=== PATIENT | female | born 1975 | race Caucasian/White ===

== ENCOUNTER 2021-07-14 09:25 | Observation (INO) ==
[2021-07-14 10:03] LABS: Basophils % 0.1 %; Eosinophils # 0.1 K/mcL (0.0-0.6); Eosinophils % 1.2 %; Hematocrit 34.1 % (35.3-44.9); Immature Granulocytes % 0.4 % (0-4); Lymphocytes # 0.5 K/mcL (0.6-4.6); Lymphocytes % 6.6 %; Mean Corpuscular HGB Conc 32.3 g/dL (31.6-35.5); Mean Corpuscular Hemoglobin 28.4 pg (28.0-33.3); Mean Corpuscular Volume 88.1 fL (83.0-100.0); Mean Platelet Volume 8.5 fL (9.4-12.4); Monocytes # 0.5 K/mcL (0.0-1.3); Monocytes % 6.6 %; Neutrophils # 5.8 K/mcL (1.6-8.9); Platelet Count 181 K/mcL (140-400); Red Blood Count 3.87 M/mcL (3.82-4.97); Red Cell Distribution Width 15.6 % (11.5-14.5); Segmented Neutrophils % 85.1 %; White Blood Count 6.8 K/mcL (4.3-11.1)
[2021-07-14 10:19] LABS: BUN/Creatinine Ratio 19 (6-26); Blood Urea Nitrogen 14 mg/dL (6-20); Calcium 9.5 mg/dL (8.6-10.3); Carbon Dioxide 25 mEq/L (23-29); Chloride 105 mEq/L (98-107); Glucose 109 mg/dL (70-105); Osmolality,Calculated 285 (280-300); Potassium 4.2 mEq/L (3.5-5.1); Sodium 137 mEq/L (136-145); eGFR For African Americans > 60 (> 60); eGFR For Non-African Americans > 60 (> 60)
[2021-07-14 10:20] LABS: Troponin I < 0.03 ng/mL (< 0.04)
[2021-07-14] MEDS ORDERED: Isovue-370 500 ML BOTTLE IVP ONE (10:26)
[2021-07-14] MEDS ORDERED: Metoclopramide 10 MG/2 ML VIAL IVP ONE (10:26)
[2021-07-14 11:59] LABS: Adenovirus Not Detected (Not Detect); Bordetella Pertussis Not Detected (Not Detect); Chlamydophila pneumoniae Not Detected (Not Detect); Coronavirus 229E Not Detected (Not Detect); Coronavirus HKU1 Not Detected (Not Detect); Coronavirus NL63 Not Detected (Not Detect); Coronavirus OC43 Not Detected (Not Detect); Human Metapneumovirus Not Detected (Not Detect); Human Rhinovirus/Enterovirus Not Detected (Not Detect); Influenza A Subtype 2009 H1 Not Detected (Not Detect); Influenza B Not Detected (Not Detect); Mycoplasma pneumoniae Not Detected (Not Detect); Parainfluenza Virus 1 Not Detected (Not Detect); Parainfluenza Virus 2 Not Detected (Not Detect); Parainfluenza Virus 3 Not Detected (Not Detect); Parainfluenza Virus 4 Not Detected (Not Detect); Respiratory Syncytial Virus Not Detected (Not Detect); SARS-CoV-2 Not Detected (Not Detect)
[2021-07-14 13:12] LABS: Bilirubin,Urine Negative (Negative); Blood,Urine Negative (Negative); Clarity,Urine Clear (Clear); Color,Urine Colorless (Yellow); Glucose,Urine (UA) Normal (Normal); Ketones,Urine Negative (Negative); Leukocyte Esterase,Urine Negative (Negative); Nitrite,Urine Negative (Negative); PH,Urine 6.5 pH Units (5.0-8.0); Protein,Urine Negative (Neg-Trace); Specific Gravity,Urine > 1.030 (1.010-1.025); Urobilinogen,Urine Normal (Normal)
[2021-07-14] MEDS ORDERED: Gadolinium Contrast Agent (WT Based) IV PRN (13:48)
[2021-07-14] MEDS ORDERED: *HR* LORazepam 2 MG/ML VIAL IVP ONE (14:56)
[2021-07-14] MEDS ORDERED: *HR* OxyCODONE Oral Soln 5 MG/5 ML UD.LIQ PO PRN ×2 (14:58)
[2021-07-14] MEDS ORDERED: Acetaminophen 325 MG TABLET PO PRN (14:59)
[2021-07-14] MEDS ORDERED: Ondansetron 4 MG/2 ML VIAL IVP PRN (15:00)
[2021-07-14] MEDS ORDERED: 0.9 % Sodium Chloride 1,000 ML IVC ONE (15:04)
[2021-07-14] MEDS ORDERED: Prochlorperazine 10 MG/2 ML VIAL IVP STA (15:07)
[2021-07-14] MEDS ORDERED: Ketorolac 30 MG/ML VIAL IVP STA (15:07)
[2021-07-14] MEDS ORDERED: *HR* LORazepam 2 MG/ML VIAL IVP PRN (15:08)
[2021-07-14] MEDS ORDERED: GADOBUTROL 30 MMOL/30 ML VIAL IVP ONE (15:17)
[2021-07-14] MEDS ORDERED: Naloxone 0.4 MG/ML INJ IVP PRN (17:55)
[2021-07-14] MEDS ORDERED: Perflutren Lipid Microsphere 1.3 ML in 0.9 % Sodium Chloride 8.7 ML IVP PRN (17:56)
[2021-07-14] MEDS: *HR* Heparin 5,000 UNIT/ML VIAL SQ SCH (18:59)
[2021-07-14] MEDS: 0.9 % Sodium Chloride 1,000 ML IVC SCH (19:00)
[2021-07-14] MEDS: BuPROPion SR (12 HR) 150 MG TABLET PO SCH (19:40)
[2021-07-14] MEDS: levoFLOXacin 750 MG TABLET PO SCH (19:40)
[2021-07-15] MEDS: 0.9 % Sodium Chloride 1,000 ML IVC SCH (03:33)
[2021-07-15 04:02] LABS: Basophils % 0.4 %; Eosinophils # 0.1 K/mcL (0.0-0.6); Eosinophils % 1.5 %; Hematocrit 31.5 % (35.3-44.9); Hemoglobin 9.8 g/dL (11.5-15.4); Immature Granulocytes % 0.4 % (0-4); Lymphocytes # 0.4 K/mcL (0.6-4.6); Lymphocytes % 7.6 %; Mean Corpuscular HGB Conc 31.1 g/dL (31.6-35.5); Mean Corpuscular Hemoglobin 27.8 pg (28.0-33.3); Mean Corpuscular Volume 89.5 fL (83.0-100.0); Mean Platelet Volume 8.7 fL (9.4-12.4); Monocytes # 0.4 K/mcL (0.0-1.3); Monocytes % 7.6 %; Neutrophils # 4.4 K/mcL (1.6-8.9); Platelet Count 163 K/mcL (140-400); Red Blood Count 3.52 M/mcL (3.82-4.97); Red Cell Distribution Width 15.4 % (11.5-14.5); Segmented Neutrophils % 82.5 %; White Blood Count 5.3 K/mcL (4.3-11.1)
[2021-07-15 04:25] LABS: % Iron Saturation 21 % (15-50); Alanine Aminotransferase 13 Units/L (7-52); Albumin 3.5 g/dL (3.5-5.7); Albumin/Globulin Ratio 1.3 (1.1-2.2); Alkaline Phosphatase 85 Units/L (34-104); Aspartate Amino Transferase 11 Units/L (13-39); BUN/Creatinine Ratio 17 (6-26); Bilirubin,Direct 0.1 mg/dL (0.0-0.2); Bilirubin,Indirect 0.5 mg/dL (0.0-1.0); Bilirubin,Total 0.6 mg/dL (0.3-1.0); Blood Urea Nitrogen 13 mg/dL (6-20); Calcium 8.3 mg/dL (8.6-10.3); Carbon Dioxide 24 mEq/L (23-29); Chloride 107 mEq/L (98-107); Globulin 2.8 g/dL (2.4-3.5); Glucose 91 mg/dL (70-105); Iron 56 mcg/dL (50-170); Osmolality,Calculated 286 (280-300); Potassium 3.7 mEq/L (3.5-5.1); Sodium 138 mEq/L (136-145); Total Protein 6.3 g/dL (6.4-8.9); Transferrin 193 mg/dL (203-362); eGFR For African Americans > 60 (> 60); eGFR For Non-African Americans > 60 (> 60)
[2021-07-15 04:35] LABS: Thyroid Stimulating Hormone 0.541 mcIU/mL (0.340-5.600)
[2021-07-15] MEDS: *HR* Heparin 5,000 UNIT/ML VIAL SQ SCH (05:54)
[2021-07-15] MEDS: BuPROPion SR (12 HR) 150 MG TABLET PO SCH (08:03)
[2021-07-15] MEDS: levoFLOXacin 750 MG TABLET PO SCH (08:03)
[2021-07-15 10:42] VITALS: BP 101/67
[2021-07-15 11:28] VITALS: PULSE 85; TEMP 98.2; O2SAT 94
== END 2021-07-15 12:50 | disposition home or self-care (01) ==
LOC: 3ANU 09:25 → EMEROOARM 09:25 → SUATTDRO 14:15 → 3ANU 15:16
PROVIDERS: ADMIT Student in an Organized Health Care Education/Training Program; ATTEND Internal Medicine

== ENCOUNTER 2021-09-08 14:32 | Inpatient (IN) ==
[2021-09-08] MEDS ORDERED: 0.9 % Sodium Chloride 1,000 ML IVC ONE (17:16)
[2021-09-08 17:20] LABS: Basophils % 0.3 %; Eosinophils % 0.5 %; Hematocrit 37.2 % (35.3-44.9); Hemoglobin 11.3 g/dL (11.5-15.4); Immature Granulocytes % 1.6 % (0-4); Lymphocytes # 0.3 K/mcL (0.6-4.6); Mean Corpuscular HGB Conc 30.4 g/dL (31.6-35.5); Mean Corpuscular Hemoglobin 26.5 pg (28.0-33.3); Mean Corpuscular Volume 87.3 fL (83.0-100.0); Mean Platelet Volume 9.1 fL (9.4-12.4); Monocytes # 0.6 K/mcL (0.0-1.3); Monocytes % 11.1 %; Neutrophils # 4.7 K/mcL (1.6-8.9); Platelet Count 187 K/mcL (140-400); Red Blood Count 4.26 M/mcL (3.82-4.97); Red Cell Distribution Width 17.8 % (11.5-14.5); Segmented Neutrophils % 81.5 %; White Blood Count 5.8 K/mcL (4.3-11.1)
[2021-09-08] MEDS ORDERED: Benzonatate 100 MG CAPSULE PO STA (17:36)
[2021-09-08] MEDS ORDERED: Morphine Sulfate 2 MG/ML SYRINGE IVP STA (17:36)
[2021-09-08 17:38] LABS: Alanine Aminotransferase 23 Units/L (7-52); Albumin 4.1 g/dL (3.5-5.7); Albumin/Globulin Ratio 1.1 (1.1-2.2); Alkaline Phosphatase 122 Units/L (34-104); Aspartate Amino Transferase 20 Units/L (13-39); BUN/Creatinine Ratio 15 (6-26); Bilirubin,Direct 0.1 mg/dL (0.0-0.2); Bilirubin,Indirect 0.5 mg/dL (0.0-1.0); Bilirubin,Total 0.6 mg/dL (0.3-1.0); Blood Urea Nitrogen 15 mg/dL (6-20); Calcium 9.8 mg/dL (8.6-10.3); Carbon Dioxide 29 mEq/L (23-29); Chloride 99 mEq/L (98-107); Globulin 3.9 g/dL (2.4-3.5); Glucose 103 mg/dL (70-105); Lipase 7 Units/L (11-82); Osmolality,Calculated 287 (280-300); Potassium 3.8 mEq/L (3.5-5.1); Sodium 138 mEq/L (136-145); eGFR For African Americans > 60 (> 60); eGFR For Non-African Americans > 60 (> 60)
[2021-09-08 17:40] LABS: INR 1.2; Prothrombin Time 13.1 Seconds (9.4-12.1)
[2021-09-08 17:43] LABS: Activated Partial Thrombo Time 27.9 Seconds (26.0-36.0)
[2021-09-08 17:50] LABS: Troponin I 0.07 ng/mL (< 0.04)
[2021-09-08] MEDS ORDERED: Iopamidol - 370 500 ML MLS IVP ONE (18:00)
[2021-09-08] MEDS ORDERED: Cefepime HCl 2,000 MG in 0.9 % Sodium Chloride 10 ML IVP ONE (19:05)
[2021-09-08] MEDS ORDERED: Vancomycin 1,500 MG/265 ML IV.SOLN IVPB ONE (19:05)
[2021-09-08 20:02] LABS: Adenovirus Not Detected (Not Detect); Coronavirus 229E Not Detected (Not Detect); Coronavirus HKU1 Not Detected (Not Detect); Coronavirus NL63 Not Detected (Not Detect); Coronavirus OC43 Not Detected (Not Detect)
[2021-09-08 20:05] LABS: Bordetella Pertussis Not Detected (Not Detect); Chlamydophila pneumoniae Not Detected (Not Detect); Human Metapneumovirus Not Detected (Not Detect); Human Rhinovirus/Enterovirus Not Detected (Not Detect); Influenza A Subtype 2009 H1 Not Detected (Not Detect); Influenza B Not Detected (Not Detect); Mycoplasma pneumoniae Not Detected (Not Detect); Parainfluenza Virus 1 Not Detected (Not Detect); Parainfluenza Virus 2 Not Detected (Not Detect); Parainfluenza Virus 3 Not Detected (Not Detect); Parainfluenza Virus 4 Not Detected (Not Detect); Respiratory Syncytial Virus Not Detected (Not Detect); SARS-CoV-2 DETECTED (Not Detect)
[2021-09-08] MEDS ORDERED: Ketorolac 30 MG/ML VIAL IVP ONE (21:40)
[2021-09-09] MEDS ORDERED: *HR* Heparin 5,000 UNIT/ML VIAL IVP ONE (00:21)
[2021-09-09] MEDS ORDERED: *HR* Heparin 5,000 UNIT/ML VIAL IVP PRN ×2 (00:21)
[2021-09-09] MEDS ORDERED: Heparin 25,000UNIT/250ML 1/2NS 25,000 UNIT/250 ML IV.SOLN IVC SCH (00:30)
[2021-09-09 00:48] LABS: Hematocrit 30.2 % (35.3-44.9); Mean Corpuscular HGB Conc 31.5 g/dL (31.6-35.5); Mean Corpuscular Hemoglobin 27.1 pg (28.0-33.3); Platelet Count 139 K/mcL (140-400); Red Blood Count 3.51 M/mcL (3.82-4.97); Red Cell Distribution Width 17.8 % (11.5-14.5); White Blood Count 5.3 K/mcL (4.3-11.1)
[2021-09-09 00:49] LABS: Heparin anti-factor XA UFH < 0.04 IU/mL (0.30-0.70)
[2021-09-09 00:50] LABS: INR 1.2; Prothrombin Time 13.2 Seconds (9.4-12.1)
[2021-09-09 00:58] LABS: Hemoglobin 9.5 g/dL (11.5-15.4)
[2021-09-09] MEDS ORDERED: Ondansetron 4 MG/2 ML VIAL IVP PRN (02:04)
[2021-09-09] MEDS ORDERED: Naloxone 0.4 MG/ML INJ IVP PRN (02:04)
[2021-09-09] MEDS: Acetaminophen 325 MG TABLET PO PRN ×2 (03:01→23:39)
[2021-09-09] MEDS: Benzonatate 100 MG CAPSULE PO PRN ×2 (03:01→15:47)
[2021-09-09] MEDS: Melatonin 3 MG TABLET PO PRN ×2 (03:01→20:02)
[2021-09-09 03:28] LABS: Basophils % 0.2 %; Eosinophils % 0.8 %; Hematocrit 31.1 % (35.3-44.9); Hemoglobin 9.5 g/dL (11.5-15.4); Immature Granulocytes % 2.1 % (0-4); Lymphocytes # 0.6 K/mcL (0.6-4.6); Lymphocytes % 11.5 %; Mean Corpuscular HGB Conc 30.5 g/dL (31.6-35.5); Mean Corpuscular Hemoglobin 26.5 pg (28.0-33.3); Mean Corpuscular Volume 86.6 fL (83.0-100.0); Mean Platelet Volume 8.6 fL (9.4-12.4); Monocytes # 0.7 K/mcL (0.0-1.3); Neutrophils # 3.4 K/mcL (1.6-8.9); Platelet Count 138 K/mcL (140-400); Red Blood Count 3.59 M/mcL (3.82-4.97); Red Cell Distribution Width 17.5 % (11.5-14.5); Segmented Neutrophils % 71.4 %; White Blood Count 4.8 K/mcL (4.3-11.1)
[2021-09-09 03:42] LABS: Albumin 3.3 g/dL (3.5-5.7); Albumin/Globulin Ratio 1.1 (1.1-2.2); BUN/Creatinine Ratio 19 (6-26); Bilirubin,Direct 0.1 mg/dL (0.0-0.2); Bilirubin,Indirect 0.4 mg/dL (0.0-1.0); Bilirubin,Total 0.5 mg/dL (0.3-1.0); Blood Urea Nitrogen 17 mg/dL (6-20); Calcium 8.5 mg/dL (8.6-10.3); Carbon Dioxide 24 mEq/L (23-29); Chloride 103 mEq/L (98-107); Globulin 3.1 g/dL (2.4-3.5); Glucose 115 mg/dL (70-105); Osmolality,Calculated 286 (280-300); Potassium 3.7 mEq/L (3.5-5.1); Sodium 137 mEq/L (136-145); Total Protein 6.4 g/dL (6.4-8.9); eGFR For African Americans > 60 (> 60); eGFR For Non-African Americans > 60 (> 60)
[2021-09-09 03:47] LABS: INR 1.3; Prothrombin Time 14.8 Seconds (9.4-12.1)
[2021-09-09 03:53] LABS: Magnesium 1.4 mg/dL (1.6-2.6); Phosphorous 3.7 mg/dL (2.7-4.5); Troponin I 0.98 ng/mL (< 0.04)
[2021-09-09 04:11] LABS: Activated Partial Thrombo Time 170.3 Seconds (26.0-36.0)
[2021-09-09] MEDS ORDERED: Ketorolac 30 MG/ML VIAL IVP PRN (04:12)
[2021-09-09] MEDS: *HR* LORazepam 0.5 MG TABLET PO PRN ×2 (05:00→20:02)
[2021-09-09 05:34] LABS: Lactate Dehydrogenase 146 Units/L (140-271); Total Protein 6.4 g/dL (6.4-8.9)
[2021-09-09 05:58] LABS: Activated Partial Thrombo Time > 360.0 Seconds (26.0-36.0); Heparin anti-factor XA UFH > 2.00 IU/mL (0.30-0.70)
[2021-09-09] MEDS ORDERED: Cefepime HCl 2,000 MG in 0.9 % Sodium Chloride Mini Bag 100 ML IVPB SCH (06:00)
[2021-09-09] MEDS: BuPROPion SR (12 HR) 150 MG TABLET PO SCH ×2 (12:01→23:40)
[2021-09-09] MEDS ORDERED: Vancomycin 1,500 MG/265 ML IV.SOLN IVPB SCH ×2 (13:00→18:00)
[2021-09-09] MEDS: *HR* OxyCODONE Immed Rel 5 MG TABLET PO PRN ×2 (15:46→20:02)
[2021-09-09] MEDS: Piperacillin/Tazobactam 3.375 GM in 0.9 % Sodium Chloride Mini Bag 100 ML IVPB SCH ×2 (16:17→23:39)
[2021-09-09 17:28] LABS: Glucose,Pleural Fluid < 10 mg/dL (No Ref Range); LDH,Pleural Fluid > 1200 Units/L (No Ref Range)
[2021-09-09 18:15] LABS: Appearance of Pleural Fl Cloudy (Clear)
[2021-09-09 21:20] LABS: Basophils,Pleural Fluid 0 %; Eosinophils,Pleural Fluid 0 %; Lymphocytes,Pleural Fluid 10.8 %; Monocytes,Pleural Fluid 3.1 %
[2021-09-09] MEDS ORDERED: *HR* Metoprolol 5 MG/5 ML VIAL IVP PRN (21:59)
[2021-09-10 06:21] LABS: Hematocrit 29.4 % (35.3-44.9); Mean Corpuscular HGB Conc 30.6 g/dL (31.6-35.5); Mean Corpuscular Hemoglobin 26.5 pg (28.0-33.3); Mean Corpuscular Volume 86.5 fL (83.0-100.0); Mean Platelet Volume 8.6 fL (9.4-12.4); Platelet Count 124 K/mcL (140-400); Red Cell Distribution Width 17.2 % (11.5-14.5); White Blood Count 4.3 K/mcL (4.3-11.1)
[2021-09-10] MEDS: *HR* Enoxaparin 40 MG/0.4 ML SYRINGE SQ SCH (06:42)
[2021-09-10 07:13] LABS: BUN/Creatinine Ratio 18 (6-26); Blood Urea Nitrogen 17 mg/dL (6-20); Calcium 7.9 mg/dL (8.6-10.3); Carbon Dioxide 25 mEq/L (23-29); Chloride 103 mEq/L (98-107); Glucose 100 mg/dL (70-105); Magnesium 1.7 mg/dL (1.6-2.6); Osmolality,Calculated 284 (280-300); Potassium 3.8 mEq/L (3.5-5.1); Sodium 136 mEq/L (136-145); eGFR For African Americans > 60 (> 60); eGFR For Non-African Americans > 60 (> 60)
[2021-09-10] MEDS ORDERED: *HR* Succinylcholine 200 MG/10 ML VIAL IVP ONE ×2 (07:33→11:49)
[2021-09-10] MEDS ORDERED: Lidocaine HCL 4 ML Topical Solution (Laryng-O-Jet Kit Sterile Pak) TP ONE ×2 (07:34→11:49)
[2021-09-10] MEDS ORDERED: Lidocaine -MPF 2% 5 ML VIAL ONE ×2 (07:37→11:49)
[2021-09-10] MEDS ORDERED: Ondansetron 4 MG/2 ML VIAL ONE ×2 (07:38→11:49)
[2021-09-10] MEDS ORDERED: *HR* FentaNYL (PF) 100 MCG/2 ML VIAL ONE (07:39)
[2021-09-10] MEDS ORDERED: Perflutren Lipid Microsphere 1.3 ML in 0.9 % Sodium Chloride 8.7 ML IVP PRN (09:06)
[2021-09-10] MEDS: Piperacillin/Tazobactam 3.375 GM in 0.9 % Sodium Chloride Mini Bag 100 ML IVPB SCH ×3 (09:57→23:21)
[2021-09-10] MEDS ORDERED: *HR* Midazolam HCl 5 MG/5 ML VIAL IVP ONE (10:19)
[2021-09-10] MEDS ORDERED: *HR* FentaNYL (PF) 100 MCG/2 ML VIAL IVP ONE (10:19)
[2021-09-10] MEDS ORDERED: Tetracaine/Benzocaine/Butamben 1 SPRAY AEROSOL MM ONE (10:19)
[2021-09-10] MEDS ORDERED: Lidocaine Viscous Oral Soln 15 ML SOLUTION MM ONE (10:19)
[2021-09-10] MEDS: BuPROPion SR (12 HR) 150 MG TABLET PO SCH ×2 (11:41→21:58)
[2021-09-10] MEDS: *HR* OxyCODONE Immed Rel 5 MG TABLET PO PRN (21:57)
[2021-09-10] MEDS: Benzonatate 100 MG CAPSULE PO PRN (21:58)
[2021-09-10] MEDS: *HR* LORazepam 0.5 MG TABLET PO PRN (23:21)
[2021-09-10] MEDS: Melatonin 3 MG TABLET PO PRN (23:21)
[2021-09-11] MEDS: *HR* Enoxaparin 40 MG/0.4 ML SYRINGE SQ SCH (06:08)
[2021-09-11 06:40] LABS: Hematocrit 27.9 % (35.3-44.9); Hemoglobin 8.5 g/dL (11.5-15.4); Immature Granulocytes % 0.6 % (0-4); Lymphocytes # 0.4 K/mcL (0.6-4.6); Lymphocytes % 8.2 %; Mean Corpuscular HGB Conc 30.5 g/dL (31.6-35.5); Mean Corpuscular Hemoglobin 26.3 pg (28.0-33.3); Mean Corpuscular Volume 86.4 fL (83.0-100.0); Mean Platelet Volume 9.3 fL (9.4-12.4); Monocytes # 0.4 K/mcL (0.0-1.3); Monocytes % 7.5 %; Neutrophils # 4.5 K/mcL (1.6-8.9); Platelet Count 128 K/mcL (140-400); Red Blood Count 3.23 M/mcL (3.82-4.97); Red Cell Distribution Width 16.4 % (11.5-14.5); Segmented Neutrophils % 83.7 %; White Blood Count 5.4 K/mcL (4.3-11.1)
[2021-09-11 06:58] LABS: BUN/Creatinine Ratio 21 (6-26); Blood Urea Nitrogen 15 mg/dL (6-20); Carbon Dioxide 25 mEq/L (23-29); Chloride 104 mEq/L (98-107); Glucose 162 mg/dL (70-105); Osmolality,Calculated 288 (280-300); Potassium 3.8 mEq/L (3.5-5.1); Sodium 137 mEq/L (136-145); eGFR For African Americans > 60 (> 60); eGFR For Non-African Americans > 60 (> 60)
[2021-09-11] MEDS: Piperacillin/Tazobactam 3.375 GM in 0.9 % Sodium Chloride Mini Bag 100 ML IVPB SCH ×3 (08:34→23:39)
[2021-09-11] MEDS: Benzonatate 100 MG CAPSULE PO PRN ×3 (08:35→23:48)
[2021-09-11] MEDS: *HR* OxyCODONE Immed Rel 5 MG TABLET PO PRN ×3 (08:35→23:47)
[2021-09-11] MEDS: BuPROPion SR (12 HR) 150 MG TABLET PO SCH ×2 (11:46→23:39)
[2021-09-11] MEDS ORDERED: DiphenhydraMINE CREAM 28.4 GM TUBE TP PRN (16:08)
[2021-09-11] MEDS: *HR* LORazepam 0.5 MG TABLET PO PRN (22:01)
[2021-09-11 22:09] LABS: Fluid Source for Cholesterol PLEURAL FLUID
[2021-09-12 01:40] LABS: Eosinophils # 0.1 K/mcL (0.0-0.6); Hematocrit 26.5 % (35.3-44.9); Immature Granulocytes % 1.2 % (0-4); Lymphocytes # 0.8 K/mcL (0.6-4.6); Lymphocytes % 14.8 %; Mean Corpuscular HGB Conc 30.2 g/dL (31.6-35.5); Mean Corpuscular Hemoglobin 26.7 pg (28.0-33.3); Mean Corpuscular Volume 88.3 fL (83.0-100.0); Mean Platelet Volume 9.2 fL (9.4-12.4); Monocytes # 0.4 K/mcL (0.0-1.3); Neutrophils # 3.9 K/mcL (1.6-8.9); Platelet Count 142 K/mcL (140-400); Red Cell Distribution Width 16.6 % (11.5-14.5); White Blood Count 5.2 K/mcL (4.3-11.1)
[2021-09-12 01:59] LABS: BUN/Creatinine Ratio 22 (6-26); Blood Urea Nitrogen 16 mg/dL (6-20); C-Reactive Protein 75 mg/L (Less than 10); Carbon Dioxide 24 mEq/L (23-29); Chloride 106 mEq/L (98-107); Glucose 130 mg/dL (70-105); Osmolality,Calculated 289 (280-300); Potassium 3.5 mEq/L (3.5-5.1); Sodium 138 mEq/L (136-145); eGFR For African Americans > 60 (> 60); eGFR For Non-African Americans > 60 (> 60)
[2021-09-12 05:50] VITALS: BP 107/67; PULSE 88; TEMP 97.6; O2SAT 96
[2021-09-12] MEDS: *HR* Enoxaparin 40 MG/0.4 ML SYRINGE SQ SCH (05:50)
[2021-09-12] MEDS: BuPROPion SR (12 HR) 150 MG TABLET PO SCH (08:20)
[2021-09-12] MEDS: Benzonatate 100 MG CAPSULE PO PRN (08:22)
[2021-09-12] MEDS: *HR* OxyCODONE Immed Rel 5 MG TABLET PO PRN (08:22)
[2021-09-12] MEDS: Piperacillin/Tazobactam 3.375 GM in 0.9 % Sodium Chloride Mini Bag 100 ML IVPB SCH (08:24)
[2021-09-12 10:44] LABS: Cholesterol,Body Fluid 103 mg/dL
== END 2021-09-12 12:55 | disposition home or self-care (01) | DRG 871 ==
LOC: EMEROOARM 14:32 → 2NENU 14:32 → SUATTDRO 09-09 00:31 → 2NENU 09-09 01:42 → SUATTDRO 09-09 07:51
PROVIDERS: ADMIT Internal Medicine; ATTEND General Practice

== ENCOUNTER 2021-09-23 17:43 | Inpatient (IN) ==
[2021-09-23] MEDS ORDERED: Iopamidol - 370 500 ML MLS IVP ONE (20:02)
[2021-09-23] MEDS ORDERED: Piperacillin/Tazobactam 3.375 GM in 0.9 % Sodium Chloride Mini Bag 100 ML IVPB ONE (20:02)
[2021-09-23 20:27] LABS: Basophils % 0.2 %; Eosinophils # 0.1 K/mcL (0.0-0.6); Eosinophils % 1.7 %; Hematocrit 27.5 % (35.3-44.9); Hemoglobin 8.2 g/dL (11.5-15.4); Immature Granulocytes % 0.8 % (0-4); Lymphocytes # 0.8 K/mcL (0.6-4.6); Lymphocytes % 12.9 %; Mean Corpuscular HGB Conc 29.8 g/dL (31.6-35.5); Mean Corpuscular Hemoglobin 26.5 pg (28.0-33.3); Mean Platelet Volume 9.5 fL (9.4-12.4); Monocytes # 0.5 K/mcL (0.0-1.3); Monocytes % 7.8 %; Neutrophils # 4.5 K/mcL (1.6-8.9); Platelet Count 195 K/mcL (140-400); Red Blood Count 3.09 M/mcL (3.82-4.97); Red Cell Distribution Width 18.2 % (11.5-14.5); Segmented Neutrophils % 76.6 %; White Blood Count 5.9 K/mcL (4.3-11.1)
[2021-09-23 20:40] LABS: Alanine Aminotransferase 10 Units/L (7-52); Albumin 3.5 g/dL (3.5-5.7); Albumin/Globulin Ratio 0.9 (1.1-2.2); Alkaline Phosphatase 123 Units/L (34-104); Aspartate Amino Transferase 14 Units/L (13-39); BUN/Creatinine Ratio 13 (6-26); Bilirubin,Direct 0.1 mg/dL (0.0-0.2); Bilirubin,Indirect 0.6 mg/dL (0.0-1.0); Bilirubin,Total 0.7 mg/dL (0.3-1.0); Blood Urea Nitrogen 10 mg/dL (6-20); Carbon Dioxide 26 mEq/L (23-29); Chloride 104 mEq/L (98-107); Globulin 3.7 g/dL (2.4-3.5); Glucose 121 mg/dL (70-105); Osmolality,Calculated 288 (280-300); Potassium 3.9 mEq/L (3.5-5.1); Sodium 139 mEq/L (136-145); Total Protein 7.2 g/dL (6.4-8.9); eGFR For African Americans > 60 (> 60); eGFR For Non-African Americans > 60 (> 60)
[2021-09-23] MEDS: Benzonatate 100 MG CAPSULE PO PRN (22:56)
[2021-09-23] MEDS ORDERED: Vancomycin 1,500 MG/265 ML IV.SOLN IVPB ONE (23:37)
[2021-09-23] MEDS ORDERED: Naloxone 0.4 MG/ML INJ IVP PRN (23:50)
[2021-09-23] MEDS ORDERED: Ondansetron 4 MG/2 ML VIAL IVP PRN (23:50)
[2021-09-24 02:45] LABS: Bilirubin,Urine Negative (Negative); Blood,Urine Negative (Negative); Clarity,Urine Clear (Clear); Color,Urine Light-Orange (Yellow); Glucose,Urine (UA) Normal (Normal); Ketones,Urine Trace mg/dL (Negative); Leukocyte Esterase,Urine Small (Negative); Mucus,Urine Few per lpf (None-Few); Nitrite,Urine Negative (Negative); PH,Urine 6.5 pH Units (5.0-8.0); Protein,Urine 30 mg/dL (Neg-Trace); RBC,Urine 0-3 per hpf (0-3); Specific Gravity,Urine > 1.030 (1.010-1.025); Squamous Epithelial Cell,Urine Moderate per hpf (None-Few); Urobilinogen,Urine Normal (Normal); WBC,Urine 0-3 per hpf (0-3)
[2021-09-24] MEDS: Piperacillin/Tazobactam 3.375 GM in 0.9 % Sodium Chloride Mini Bag 100 ML IVPB SCH ×2 (07:46→16:11)
[2021-09-24 08:52] LABS: Monocytes % 9.6 %
[2021-09-24 08:53] LABS: Basophils % 0.4 %; Eosinophils # 0.1 K/mcL (0.0-0.6); Eosinophils % 2.1 %; Hematocrit 25.7 % (35.3-44.9); Hemoglobin 7.5 g/dL (11.5-15.4); Immature Granulocytes % 0.8 % (0-4); Lymphocytes # 0.6 K/mcL (0.6-4.6); Lymphocytes % 11.9 %; Mean Corpuscular HGB Conc 29.2 g/dL (31.6-35.5); Mean Corpuscular Hemoglobin 26.1 pg (28.0-33.3); Mean Corpuscular Volume 89.5 fL (83.0-100.0); Mean Platelet Volume 9.7 fL (9.4-12.4); Monocytes # 0.5 K/mcL (0.0-1.3); Neutrophils # 3.6 K/mcL (1.6-8.9); Platelet Count 181 K/mcL (140-400); Red Blood Count 2.87 M/mcL (3.82-4.97); Red Cell Distribution Width 18.5 % (11.5-14.5); Segmented Neutrophils % 75.2 %; White Blood Count 4.8 K/mcL (4.3-11.1)
[2021-09-24 08:58] LABS: INR 1.3; Prothrombin Time 14.4 Seconds (9.4-12.1)
[2021-09-24 09:05] LABS: BUN/Creatinine Ratio 16 (6-26); Blood Urea Nitrogen 11 mg/dL (6-20); Calcium 8.7 mg/dL (8.6-10.3); Carbon Dioxide 25 mEq/L (23-29); Chloride 106 mEq/L (98-107); Glucose 100 mg/dL (70-105); Magnesium 1.7 mg/dL (1.6-2.6); Osmolality,Calculated 287 (280-300); Potassium 3.8 mEq/L (3.5-5.1); Sodium 139 mEq/L (136-145); eGFR For African Americans > 60 (> 60); eGFR For Non-African Americans > 60 (> 60)
[2021-09-24 09:50] LABS: Anisocytosis 1+ (Not Present); Hypochromasia Present (Not Present)
[2021-09-24 09:51] LABS: Platelet Estimate Normal (Normal); Poikilocytosis 1+ (Not Present); Polychromasia 1+ (Not Present)
[2021-09-24] MEDS ORDERED: Ondansetron ODT 4 MG TAB.RAPDIS SL PRN (11:19)
[2021-09-24] MEDS: *HR* OxyCODONE Immed Rel 5 MG TABLET PO PRN ×2 (11:33→17:04)
[2021-09-24] MEDS: Benzonatate 100 MG CAPSULE PO PRN ×2 (11:42→21:07)
[2021-09-24] MEDS: BuPROPion SR (12 HR) 150 MG TABLET PO SCH (11:43)
[2021-09-24] MEDS: Vancomycin 1,250 MG/262.5 ML IV.SOLN IVPB SCH (13:35)
[2021-09-24] MEDS: *HR* LORazepam 1 MG TABLET PO PRN (21:07)
[2021-09-25] MEDS: BuPROPion SR (12 HR) 150 MG TABLET PO SCH ×3 (00:23→23:29)
[2021-09-25] MEDS: Vancomycin 1,250 MG/262.5 ML IV.SOLN IVPB SCH (00:24)
[2021-09-25] MEDS: Piperacillin/Tazobactam 3.375 GM in 0.9 % Sodium Chloride Mini Bag 100 ML IVPB SCH ×4 (00:25→23:29)
[2021-09-25] MEDS: *HR* OxyCODONE Immed Rel 5 MG TABLET PO PRN ×4 (00:45→23:29)
[2021-09-25 02:18] LABS: Hemoglobin 6.7 g/dL (11.5-15.4); Immature Granulocytes % 0.6 % (0-4); White Blood Count 4.9 K/mcL (4.3-11.1)
[2021-09-25 02:20] LABS: Basophils % 0.2 %; Eosinophils # 0.1 K/mcL (0.0-0.6); Hematocrit 22.9 % (35.3-44.9); Lymphocytes # 0.7 K/mcL (0.6-4.6); Lymphocytes % 14.2 %; Mean Corpuscular HGB Conc 29.3 g/dL (31.6-35.5); Mean Corpuscular Volume 88.8 fL (83.0-100.0); Mean Platelet Volume 9.6 fL (9.4-12.4); Monocytes # 0.6 K/mcL (0.0-1.3); Monocytes % 11.2 %; Neutrophils # 3.5 K/mcL (1.6-8.9); Platelet Count 159 K/mcL (140-400); Red Blood Count 2.58 M/mcL (3.82-4.97); Red Cell Distribution Width 18.4 % (11.5-14.5); Segmented Neutrophils % 71.8 %
[2021-09-25 02:41] LABS: BUN/Creatinine Ratio 17 (6-26); Blood Urea Nitrogen 12 mg/dL (6-20); Calcium 8.5 mg/dL (8.6-10.3); Carbon Dioxide 23 mEq/L (23-29); Chloride 107 mEq/L (98-107); Glucose 101 mg/dL (70-105); Osmolality,Calculated 288 (280-300); Potassium 3.8 mEq/L (3.5-5.1); Sodium 139 mEq/L (136-145); eGFR For African Americans > 60 (> 60); eGFR For Non-African Americans > 60 (> 60)
[2021-09-25 02:49] LABS: Anisocytosis 1+ (Not Present); Hypochromasia Present (Not Present); Platelet Estimate Normal (Normal); Poikilocytosis 1+ (Not Present); Polychromasia 1+ (Not Present)
[2021-09-25] MEDS: Acetaminophen 325 MG TABLET PO PRN ×2 (05:07→20:41)
[2021-09-25] MEDS ORDERED: 0.9 % Sodium Chloride 250 ML IVC SCH (07:45)
[2021-09-25] MEDS: Benzonatate 100 MG CAPSULE PO PRN ×3 (08:37→23:29)
[2021-09-25] MEDS: Ipratropium/Albuterol Neb 3 ML IH SCH ×3 (10:11→21:15)
[2021-09-25] MEDS: Acetylcysteine 10% 2 ML INHSOL IH SCH ×3 (10:12→21:15)
[2021-09-25 11:01] LABS: Immature Reticulocyte % 32.7 % (11.0-38.0); Retculocyte # 0.12 M/mcL (0.05-0.10); Reticulocyte % 4.1 % (1.6-2.8)
[2021-09-25 11:50] LABS: Folate 18.9 ng/mL (3.0-16.0)
[2021-09-25 12:06] LABS: % Iron Saturation 13 % (15-50); Iron 27 mcg/dL (50-170); Lactate Dehydrogenase 163 Units/L (140-271); Transferrin 150 mg/dL (203-362); Vancomycin,Trough 12 mcg/mL (5-10)
[2021-09-25 12:38] LABS: Ferritin 522 ng/mL (10-120)
[2021-09-25] MEDS ORDERED: Vancomycin 1,500 MG/265 ML IV.SOLN IVPB SCH (13:00)
[2021-09-25] MEDS: *HR* LORazepam 1 MG TABLET PO PRN (20:40)
[2021-09-26 03:31] LABS: Basophils % 0.2 %; Eosinophils # 0.1 K/mcL (0.0-0.6); Eosinophils % 2.5 %; Hematocrit 25.1 % (35.3-44.9); Hemoglobin 7.4 g/dL (11.5-15.4); Lymphocytes # 0.8 K/mcL (0.6-4.6); Lymphocytes % 15.3 %; Mean Corpuscular HGB Conc 29.5 g/dL (31.6-35.5); Mean Corpuscular Hemoglobin 26.6 pg (28.0-33.3); Mean Corpuscular Volume 90.3 fL (83.0-100.0); Mean Platelet Volume 9.5 fL (9.4-12.4); Monocytes # 0.5 K/mcL (0.0-1.3); Monocytes % 10.3 %; Neutrophils # 3.6 K/mcL (1.6-8.9); Platelet Count 161 K/mcL (140-400); Red Blood Count 2.78 M/mcL (3.82-4.97); Red Cell Distribution Width 17.9 % (11.5-14.5); Segmented Neutrophils % 70.7 %; White Blood Count 5.2 K/mcL (4.3-11.1)
[2021-09-26 03:47] LABS: BUN/Creatinine Ratio 18 (6-26); Blood Urea Nitrogen 13 mg/dL (6-20); Calcium 8.7 mg/dL (8.6-10.3); Carbon Dioxide 25 mEq/L (23-29); Chloride 106 mEq/L (98-107); Glucose 96 mg/dL (70-105); Osmolality,Calculated 290 (280-300); Potassium 3.7 mEq/L (3.5-5.1); Sodium 140 mEq/L (136-145); eGFR For African Americans > 60 (> 60); eGFR For Non-African Americans > 60 (> 60)
[2021-09-26] MEDS: Ipratropium/Albuterol Neb 3 ML IH SCH ×4 (03:57→20:02)
[2021-09-26] MEDS: Acetylcysteine 10% 2 ML INHSOL IH SCH ×4 (03:57→20:02)
[2021-09-26] MEDS: Piperacillin/Tazobactam 3.375 GM in 0.9 % Sodium Chloride Mini Bag 100 ML IVPB SCH ×3 (07:18→23:26)
[2021-09-26] MEDS ORDERED: *HR* Midazolam HCl 2 MG/2 ML VIAL ONE (11:40)
[2021-09-26] MEDS ORDERED: *HR* FentaNYL (PF) 100 MCG/2 ML VIAL ONE (11:40)
[2021-09-26] MEDS ORDERED: *HR* Propofol 200 MG/20 ML VIAL IVP ONE ×2 (11:40→12:00)
[2021-09-26] MEDS ORDERED: Lidocaine/EPI 1:100k 1% 30 ML VIAL INFILT ONE (11:45)
[2021-09-26] MEDS: BuPROPion SR (12 HR) 150 MG TABLET PO SCH ×2 (11:54→20:57)
[2021-09-26] MEDS ORDERED: Lidocaine -MPF 2% 5 ML VIAL ONE (12:44)
[2021-09-26] MEDS ORDERED: *HR* Rocuronium Bromide 50 MG/5 ML VIAL ONE (13:56)
[2021-09-26] MEDS: *HR* OxyCODONE Immed Rel 5 MG TABLET PO PRN ×3 (14:15→23:26)
[2021-09-26] MEDS: Benzonatate 100 MG CAPSULE PO PRN ×2 (15:17→23:25)
[2021-09-26] MEDS ORDERED: Ketorolac 30 MG/ML VIAL IVP ONE (17:12)
[2021-09-26] MEDS: *HR* LORazepam 1 MG TABLET PO PRN (20:57)
[2021-09-26 23:55] LABS: BUN/Creatinine Ratio 13 (6-26); Blood Urea Nitrogen 12 mg/dL (6-20); Calcium 8.6 mg/dL (8.6-10.3); Carbon Dioxide 24 mEq/L (23-29); Chloride 105 mEq/L (98-107); Glucose 135 mg/dL (70-105); Osmolality,Calculated 288 (280-300); Potassium 3.8 mEq/L (3.5-5.1); Sodium 138 mEq/L (136-145); eGFR For African Americans > 60 (> 60); eGFR For Non-African Americans > 60 (> 60)
[2021-09-27 01:54] LABS: Basophils % 0.2 %; Eosinophils # 0.2 K/mcL (0.0-0.6); Eosinophils % 2.9 %; Hemoglobin 7.8 g/dL (11.5-15.4); Immature Granulocytes % 0.4 % (0-4); Lymphocytes # 0.6 K/mcL (0.6-4.6); Lymphocytes % 11.4 %; Mean Corpuscular Hemoglobin 27.1 pg (28.0-33.3); Mean Corpuscular Volume 90.3 fL (83.0-100.0); Mean Platelet Volume 9.7 fL (9.4-12.4); Monocytes # 0.5 K/mcL (0.0-1.3); Monocytes % 9.9 %; Neutrophils # 3.9 K/mcL (1.6-8.9); Platelet Count 174 K/mcL (140-400); Red Blood Count 2.88 M/mcL (3.82-4.97); Red Cell Distribution Width 18.3 % (11.5-14.5); Segmented Neutrophils % 75.2 %; White Blood Count 5.2 K/mcL (4.3-11.1)
[2021-09-27] MEDS: Ipratropium/Albuterol Neb 3 ML IH SCH ×4 (03:46→21:14)
[2021-09-27] MEDS: Acetylcysteine 10% 2 ML INHSOL IH SCH ×2 (03:46→10:50)
[2021-09-27] MEDS: *HR* OxyCODONE Immed Rel 5 MG TABLET PO PRN ×4 (03:48→20:07)
[2021-09-27] MEDS ORDERED: polyethylene glycoL 3350 17 GM POWD.PACK PO PRN (07:57)
[2021-09-27] MEDS: Benzonatate 100 MG CAPSULE PO PRN ×2 (08:29→15:06)
[2021-09-27] MEDS: Piperacillin/Tazobactam 3.375 GM in 0.9 % Sodium Chloride Mini Bag 100 ML IVPB SCH (08:29)
[2021-09-27] MEDS: Sennosides/Docusate Sodium TABLET PO SCH ×2 (08:30→20:04)
[2021-09-27] MEDS: BuPROPion SR (12 HR) 150 MG TABLET PO SCH ×2 (11:14→23:16)
[2021-09-28] MEDS: *HR* OxyCODONE Immed Rel 5 MG TABLET PO PRN ×5 (00:05→22:25)
[2021-09-28] MEDS: Benzonatate 100 MG CAPSULE PO PRN ×3 (00:05→22:26)
[2021-09-28] MEDS: Ipratropium/Albuterol Neb 3 ML IH SCH ×4 (04:17→22:04)
[2021-09-28 07:32] LABS: Basophils % 0.4 %; Eosinophils # 0.2 K/mcL (0.0-0.6); Eosinophils % 3.2 %; Hematocrit 27.9 % (35.3-44.9); Hemoglobin 8.4 g/dL (11.5-15.4); Immature Granulocytes % 0.7 % (0-4); Lymphocytes # 0.5 K/mcL (0.6-4.6); Lymphocytes % 10.1 %; Mean Corpuscular HGB Conc 30.1 g/dL (31.6-35.5); Mean Corpuscular Hemoglobin 26.4 pg (28.0-33.3); Mean Corpuscular Volume 87.7 fL (83.0-100.0); Mean Platelet Volume 9.4 fL (9.4-12.4); Monocytes # 0.6 K/mcL (0.0-1.3); Monocytes % 10.7 %; Platelet Count 182 K/mcL (140-400); Red Blood Count 3.18 M/mcL (3.82-4.97); Red Cell Distribution Width 18.8 % (11.5-14.5); Segmented Neutrophils % 74.9 %; White Blood Count 5.3 K/mcL (4.3-11.1)
[2021-09-28] MEDS: Sennosides/Docusate Sodium TABLET PO SCH ×2 (07:38→20:52)
[2021-09-28 07:52] LABS: BUN/Creatinine Ratio 15 (6-26); Blood Urea Nitrogen 9 mg/dL (6-20); Calcium 8.8 mg/dL (8.6-10.3); Carbon Dioxide 27 mEq/L (23-29); Chloride 101 mEq/L (98-107); Glucose 97 mg/dL (70-105); Osmolality,Calculated 281 (280-300); Potassium 3.6 mEq/L (3.5-5.1); Sodium 136 mEq/L (136-145); eGFR For African Americans > 60 (> 60); eGFR For Non-African Americans > 60 (> 60)
[2021-09-28] MEDS: BuPROPion SR (12 HR) 150 MG TABLET PO SCH ×2 (11:06→22:26)
[2021-09-28] MEDS: *HR* LORazepam 1 MG TABLET PO PRN (20:52)
[2021-09-29] MEDS: Ipratropium/Albuterol Neb 3 ML IH SCH ×2 (04:00→10:17)
[2021-09-29] MEDS: *HR* OxyCODONE Immed Rel 5 MG TABLET PO PRN ×2 (04:21→08:29)
[2021-09-29 07:03] VITALS: TEMP 97.9
[2021-09-29] MEDS: Sennosides/Docusate Sodium TABLET PO SCH (08:02)
[2021-09-29] MEDS: Benzonatate 100 MG CAPSULE PO PRN (08:29)
[2021-09-29 10:45] VITALS: BP 93/57; PULSE 98; O2SAT 96
== END 2021-09-29 13:26 | disposition home health service (06) | DRG 180 ==
LOC: EMEROOARM 17:43 → INTOOBSV 09-24 15:13 → SUATTDRO 09-24 15:13 → 3ANU 09-24 15:13
PROVIDERS: ADMIT Family Medicine; ATTEND General Practice

== ENCOUNTER 2021-10-29 09:22 | Inpatient (IN) ==
[~2021-10-29 09:22] MED LIST: Famotidine 20 MG/2 ML VIAL IVP ONE; Ringers Solution, Lactated 1,000 ML IVC ONE
[2021-10-29] MEDS ORDERED: Naloxone 0.4 MG/ML INJ IVP PRN (10:23)
[2021-10-29] MEDS ORDERED: *HR* FentaNYL (PF) 100 MCG/2 ML VIAL IVP PRN (10:23)
[2021-10-29] MEDS ORDERED: Albuterol 2.5 MG/3 ML NEBULIZER IH PRN (10:23)
[2021-10-29] MEDS ORDERED: *HR* Midazolam HCl 2 MG/2 ML VIAL ONE ×2 (10:36→14:25)
[2021-10-29] MEDS ORDERED: *HR* Propofol 200 MG/20 ML VIAL IVP ONE ×2 (10:36→10:42)
[2021-10-29] MEDS ORDERED: Lidocaine -MPF 2% 5 ML VIAL ONE ×2 (10:48→14:12)
[2021-10-29] MEDS ORDERED: Lidocaine/EPI 1:200k 1% PF 10 ML VIAL INFILT ONE (11:46)
[2021-10-29] MEDS ORDERED: *HR* FentaNYL (PF) 100 MCG/2 ML VIAL ONE ×2 (12:20→14:25)
[2021-10-29] MEDS ORDERED: *HR* OxyCODONE Immed Rel 5 MG TABLET PO STA (12:53)
[2021-10-29] MEDS ORDERED: Ondansetron 4 MG/2 ML VIAL IVP ONE ×2 (13:05→13:13)
[2021-10-29] MEDS ORDERED: EPHEDrine 50 MG/ML VIAL ONE (13:11)
[2021-10-29] MEDS ORDERED: Albumin Human 5% 25.0 GM/500 ML IV.SOLN ONE (13:22)
[2021-10-29 13:32] LABS: ABG Base Excess 5 mEq/L (-2 to 3); ABG HCO3 30 mEq/L (21-27); ABG Oxygen Saturation 98 % (95-98); ABG PCO2 47 mmHg (35-45); ABG PH 7.41 pH Units (7.32-7.45); ABG PO2 112 mmHg (85-104); ABG TCO2 31 mEq/L (20-26)
[2021-10-29] MEDS ORDERED: Piperacillin/Tazobactam 3.375 GM in 0.9 % Sodium Chloride Mini Bag 100 ML IVPB ONE (13:54)
[2021-10-29] MEDS ORDERED: *HR* Etomidate 40 MG/20 ML VIAL IVP ONE (14:12)
[2021-10-29] MEDS ORDERED: *HR* Succinylcholine 200 MG/10 ML VIAL IVP ONE (14:12)
[2021-10-29] MEDS ORDERED: *HR* Rocuronium Bromide 50 MG/5 ML VIAL ONE (14:12)
[2021-10-29] MEDS ORDERED: Norepinephrine 4 MG/254 ML IV.SOLN IVC ONE (14:34)
[2021-10-29] MEDS: Midazolam HCl 50 MG/50 ML IV.SOLN IVC SCH (14:49)
[2021-10-29] MEDS: FentaNYL (PF) 1,000 MCG/100 ML IV.SOLN IVC SCH ×2 (14:49→20:02)
[2021-10-29] MEDS: Norepinephrine 4 MG/254 ML IV.SOLN IVC SCH (14:49)
[2021-10-29 14:56] LABS: BUN/Creatinine Ratio 18 (6-26); Blood Urea Nitrogen 11 mg/dL (6-20); Calcium 8.4 mg/dL (8.6-10.3); Carbon Dioxide 31 mEq/L (23-29); Chloride 98 mEq/L (98-107); Glucose 165 mg/dL (70-105); Osmolality,Calculated 287 (280-300); Potassium 3.7 mEq/L (3.5-5.1); Sodium 137 mEq/L (136-145)
[2021-10-29] MEDS ORDERED: Artificial Tears SOLN 15 ML BOTTLE BOTH EYES PRN (15:09)
[2021-10-29] MEDS: Dexmedetomidine HCl 400 MCG/100 ML MLS IVC SCH ×2 (15:42→23:34)
[2021-10-29 15:49] LABS: Basophils % 0.2 %; Eosinophils # 0.1 K/mcL (0.0-0.6); Eosinophils % 0.8 %; Lymphocytes # 0.8 K/mcL (0.6-4.6); Lymphocytes % 4.7 %; Mean Corpuscular HGB Conc 28.6 g/dL (31.6-35.5); Mean Corpuscular Volume 90.8 fL (83.0-100.0); Mean Platelet Volume 10.6 fL (9.4-12.4); Monocytes # 0.6 K/mcL (0.0-1.3); Monocytes % 3.5 %; Nucleated Red Blood Cells 1.7 /100 WBC (0); Platelet Count 124 K/mcL (140-400); Red Blood Count 1.31 M/mcL (3.82-4.97); Red Cell Distribution Width 21.7 % (11.5-14.5); Segmented Neutrophils % 87.8 %; White Blood Count 15.9 K/mcL (4.3-11.1)
[2021-10-29 15:51] LABS: Hemoglobin 3.4 g/dL (11.5-15.4)
[2021-10-29 15:52] LABS: Hematocrit 11.9 % (35.3-44.9)
[2021-10-29] MEDS: Ipratropium/Albuterol Neb 3 ML IH SCH ×2 (16:09→21:30)
[2021-10-29] MEDS ORDERED: 0.9 % Sodium Chloride 250 ML ONE (16:12)
[2021-10-29 16:22] LABS: Anisocytosis 2+ (Not Present)
[2021-10-29 16:23] LABS: Hypochromasia Present (Not Present); Microcytosis Present (Not Present)
[2021-10-29 16:24] LABS: Platelet Estimate Decreased (Normal)
[2021-10-29 16:41] LABS: ABG Base Excess 3 mEq/L (-2 to 3); ABG HCO3 28 mEq/L (21-27); ABG Oxygen Saturation 100 % (95-98); ABG PCO2 46 mmHg (35-45); ABG PO2 490 mmHg (85-104); ABG TCO2 30 mEq/L (20-26); Blood Gas Modality AF; Blood Gas VT 400 cc
[2021-10-29] MEDS: Artificial Tears SOLN 15 ML BOTTLE BOTH EYES SCH ×3 (16:44→23:35)
[2021-10-29] MEDS: Famotidine 20 MG/2 ML VIAL IVP SCH (18:05)
[2021-10-29] MEDS: Chlorhexidine Rinse 15 ML MOUTHWASH MM SCH (20:02)
[2021-10-30 01:13] LABS: Basophils % 0.2 %; Eosinophils % 0.2 %; Red Blood Count 2.36 M/mcL (3.82-4.97)
[2021-10-30 01:15] LABS: VBG Ionized Calcium 1.02 mmol/L (1.15-1.35)
[2021-10-30 01:15] LABS: Hematocrit 21.8 % (35.3-44.9); Hemoglobin 7.1 g/dL (11.5-15.4); Immature Granulocytes % 2.8 % (0-4); Immature Platelets 4.6 % (1.1-6.1); Lymphocytes # 0.4 K/mcL (0.6-4.6); Lymphocytes % 4.1 %; Mean Corpuscular HGB Conc 32.6 g/dL (31.6-35.5); Mean Corpuscular Hemoglobin 30.1 pg (28.0-33.3); Mean Corpuscular Volume 92.4 fL (83.0-100.0); Mean Platelet Volume 10.1 fL (9.4-12.4); Monocytes # 0.3 K/mcL (0.0-1.3); Monocytes % 2.4 %; Neutrophils # 9.6 K/mcL (1.6-8.9); Nucleated Red Blood Cells 1.4 /100 WBC (0); Platelet Count 82 K/mcL (140-400); Red Cell Distribution Width 17.3 % (11.5-14.5); Segmented Neutrophils % 90.3 %; White Blood Count 10.6 K/mcL (4.3-11.1)
[2021-10-30 01:23] LABS: INR 1.3; Prothrombin Time 14.7 Seconds (9.4-12.1)
[2021-10-30 01:31] LABS: Alanine Aminotransferase 7 Units/L (7-52); Albumin 3.1 g/dL (3.5-5.7); Albumin/Globulin Ratio 1.2 (1.1-2.2); Alkaline Phosphatase 116 Units/L (34-104); Aspartate Amino Transferase 24 Units/L (13-39); BUN/Creatinine Ratio 23 (6-26); Bilirubin,Total 2.2 mg/dL (0.3-1.0); Blood Urea Nitrogen 16 mg/dL (6-20); Calcium 7.8 mg/dL (8.6-10.3); Carbon Dioxide 27 mEq/L (23-29); Chloride 100 mEq/L (98-107); Globulin 2.5 g/dL (2.4-3.5); Glucose 168 mg/dL (70-105); Magnesium 1.5 mg/dL (1.6-2.6); Osmolality,Calculated 285 (280-300); Phosphorous 4.4 mg/dL (2.7-4.5); Potassium 4.6 mEq/L (3.5-5.1); Sodium 135 mEq/L (136-145); Total Protein 5.6 g/dL (6.4-8.9)
[2021-10-30 01:44] LABS: Activated Partial Thrombo Time 20.4 Seconds (26.0-36.0)
[2021-10-30] MEDS: FentaNYL (PF) 1,000 MCG/100 ML IV.SOLN IVC SCH ×3 (03:19→14:59)
[2021-10-30] MEDS: Artificial Tears SOLN 15 ML BOTTLE BOTH EYES SCH ×6 (03:19→22:33)
[2021-10-30] MEDS ORDERED: Potassium Phosphate 44 MEQ in 0.9 % Sodium Chloride 250 ML IVPB PRN (03:20)
[2021-10-30] MEDS ORDERED: Potassium Chloride 40 MEQ/200 ML BAG IVPB PRN (03:20)
[2021-10-30] MEDS: Ipratropium/Albuterol Neb 3 ML IH SCH ×4 (03:21→21:27)
[2021-10-30] MEDS: Norepinephrine 4 MG/254 ML IV.SOLN IVC SCH ×2 (03:38→20:02)
[2021-10-30] MEDS: Calcium Gluconate 1gm/50mL 1 GM/50 ML BAG IVPB PRN (03:40)
[2021-10-30 04:59] LABS: ABG Base Excess 2 mEq/L (-2 to 3); ABG HCO3 28 mEq/L (21-27); ABG Oxygen Saturation 100 % (95-98); ABG PCO2 52 mmHg (35-45); ABG PH 7.34 pH Units (7.32-7.45); ABG PO2 269 mmHg (85-104); ABG TCO2 30 mEq/L (20-26); Blood Gas Modality AF; Blood Gas VT 400 cc
[2021-10-30] MEDS: Famotidine 20 MG/2 ML VIAL IVP SCH ×2 (05:25→17:13)
[2021-10-30] MEDS: Vancomycin 1,500 MG/265 ML IV.SOLN IVPB SCH ×2 (05:35→17:12)
[2021-10-30 06:47] LABS: Hematocrit 20.6 % (35.3-44.9); Hemoglobin 6.8 g/dL (11.5-15.4)
[2021-10-30] MEDS ORDERED: 0.9 % Sodium Chloride 250 ML IVC SCH (07:00)
[2021-10-30] MEDS: Piperacillin/Tazobactam 3.375 GM in 0.9 % Sodium Chloride Mini Bag 100 ML IVPB SCH ×3 (07:16→23:27)
[2021-10-30] MEDS: Dexmedetomidine HCl 400 MCG/100 ML MLS IVC SCH ×2 (07:19→14:58)
[2021-10-30] MEDS: Chlorhexidine Rinse 15 ML MOUTHWASH MM SCH ×2 (08:10→20:02)
[2021-10-30] MEDS ORDERED: Naloxone 0.4 MG/ML INJ IVP PRN (09:23)
[2021-10-30 15:06] LABS: VBG Ionized Calcium 1.11 mmol/L (1.15-1.35)
[2021-10-30 15:08] LABS: Eosinophils % 0.1 %
[2021-10-30 15:09] LABS: Basophils % 0.3 %; Hematocrit 28.1 % (35.3-44.9); Hemoglobin 9.3 g/dL (11.5-15.4); Immature Granulocytes % 3.2 % (0-4); Lymphocytes # 0.5 K/mcL (0.6-4.6); Lymphocytes % 3.9 %; Mean Corpuscular HGB Conc 33.1 g/dL (31.6-35.5); Mean Corpuscular Hemoglobin 28.7 pg (28.0-33.3); Mean Corpuscular Volume 86.7 fL (83.0-100.0); Mean Platelet Volume 10.1 fL (9.4-12.4); Neutrophils # 10.8 K/mcL (1.6-8.9); Nucleated Red Blood Cells 1.6 /100 WBC (0); Red Blood Count 3.24 M/mcL (3.82-4.97); Red Cell Distribution Width 18.3 % (11.5-14.5); Segmented Neutrophils % 84.5 %; White Blood Count 12.8 K/mcL (4.3-11.1)
[2021-10-30 15:17] LABS: Platelet Count 79 K/mcL (140-400)
[2021-10-30] MEDS: Midazolam HCl 50 MG/50 ML IV.SOLN IVC SCH (16:18)
[2021-10-30] MEDS ORDERED: Thiamine (B-1) 100 MG, Folic Acid 1 MG, MVI, adult with vitamin K 10 ML in 0.9 % Sodi... IVPB SCH (18:00)
[2021-10-30 20:18] LABS: Immature Reticulocyte % 45.5 % (11.0-38.0); Retculocyte # 0.15 M/mcL (0.05-0.10); Reticulocyte % 4.6 % (1.6-2.8)
[2021-10-30] MEDS ORDERED: *HR* OxyCODONE Immed Rel 5 MG TABLET PO PRN (21:23)
[2021-10-30] MEDS ORDERED: Ondansetron ODT 4 MG TAB.RAPDIS SL PRN (21:23)
[2021-10-30] MEDS: Benzonatate 100 MG CAPSULE PO PRN (23:27)
[2021-10-31] MEDS ORDERED: *HR* OxyCODONE Immed Rel 5 MG TABLET PO ONE (00:11)
[2021-10-31 00:59] LABS: Red Cell Distribution Width 18.9 % (11.5-14.5); Segmented Neutrophils % 84.5 %
[2021-10-31 01:01] LABS: Basophils % 0.1 %; Eosinophils % 0.1 %; Hematocrit 26.2 % (35.3-44.9); Hemoglobin 8.5 g/dL (11.5-15.4); Immature Granulocytes % 3.1 % (0-4); Immature Platelets 6.1 % (1.1-6.1); Lymphocytes # 0.5 K/mcL (0.6-4.6); Lymphocytes % 4.3 %; Mean Corpuscular HGB Conc 32.4 g/dL (31.6-35.5); Mean Corpuscular Hemoglobin 28.7 pg (28.0-33.3); Mean Corpuscular Volume 88.5 fL (83.0-100.0); Mean Platelet Volume 10.2 fL (9.4-12.4); Monocytes % 7.9 %; Neutrophils # 10.7 K/mcL (1.6-8.9); Nucleated Red Blood Cells 1.7 /100 WBC (0); Red Blood Count 2.96 M/mcL (3.82-4.97); White Blood Count 12.6 K/mcL (4.3-11.1)
[2021-10-31 01:02] LABS: Platelet Count 70 K/mcL (140-400)
[2021-10-31] MEDS: Ipratropium/Albuterol Neb 3 ML IH SCH ×4 (03:15→21:26)
[2021-10-31] MEDS: Artificial Tears SOLN 15 ML BOTTLE BOTH EYES SCH ×5 (03:16→19:57)
[2021-10-31] MEDS: Vancomycin 1,500 MG/265 ML IV.SOLN IVPB SCH (04:24)
[2021-10-31 04:26] LABS: VBG Ionized Calcium 1.03 mmol/L (1.15-1.35)
[2021-10-31 04:53] LABS: Calcium 7.7 mg/dL (8.6-10.3); Phosphorous 2.7 mg/dL (2.7-4.5); Potassium 4.1 mEq/L (3.5-5.1)
[2021-10-31] MEDS: Famotidine 20 MG/2 ML VIAL IVP SCH ×2 (05:10→17:04)
[2021-10-31] MEDS: Calcium Gluconate 1gm/50mL 1 GM/50 ML BAG IVPB PRN (05:10)
[2021-10-31] MEDS: *HR* OxyCODONE Immed Rel 5 MG TABLET PO PRN ×5 (05:10→21:09)
[2021-10-31] MEDS: Chlorhexidine Rinse 15 ML MOUTHWASH MM SCH ×2 (09:07→19:57)
[2021-10-31] MEDS: Piperacillin/Tazobactam 3.375 GM in 0.9 % Sodium Chloride Mini Bag 100 ML IVPB SCH ×3 (09:15→23:35)
[2021-10-31] MEDS: BuPROPion SR (12 HR) 150 MG TABLET PO SCH ×2 (17:04→23:36)
[2021-10-31 18:06] LABS: Calcium 8.2 mg/dL (8.6-10.3); Potassium 3.8 mEq/L (3.5-5.1)
[2021-10-31] MEDS: Benzonatate 100 MG CAPSULE PO PRN (21:09)
[2021-11-01] MEDS: Artificial Tears SOLN 15 ML BOTTLE BOTH EYES SCH ×2 (03:25→03:55)
[2021-11-01] MEDS: Ipratropium/Albuterol Neb 3 ML IH SCH ×4 (04:00→21:49)
[2021-11-01 04:03] LABS: Calcium 7.4 mg/dL (8.6-10.3); Potassium 3.6 mEq/L (3.5-5.1)
[2021-11-01] MEDS ORDERED: Ondansetron ODT 4 MG TAB.RAPDIS SL PRN (06:15)
[2021-11-01] MEDS: *HR* OxyCODONE Immed Rel 5 MG TABLET PO PRN ×4 (06:29→22:23)
[2021-11-01] MEDS: Piperacillin/Tazobactam 3.375 GM in 0.9 % Sodium Chloride Mini Bag 100 ML IVPB SCH ×2 (08:23→15:59)
[2021-11-01 09:08] LABS: Basophils % 0.2 %; Eosinophils % 1.4 %; Hemoglobin 7.7 g/dL (11.5-15.4); Immature Granulocytes % 4.6 % (0-4)
[2021-11-01 09:10] LABS: Eosinophils # 0.1 K/mcL (0.0-0.6); Hematocrit 23.8 % (35.3-44.9); Immature Platelets 5.6 % (1.1-6.1); Lymphocytes # 0.5 K/mcL (0.6-4.6); Lymphocytes % 5.5 %; Mean Corpuscular HGB Conc 32.4 g/dL (31.6-35.5); Mean Corpuscular Hemoglobin 29.3 pg (28.0-33.3); Mean Corpuscular Volume 90.5 fL (83.0-100.0); Mean Platelet Volume 10.8 fL (9.4-12.4); Monocytes # 0.7 K/mcL (0.0-1.3); Monocytes % 7.2 %; Nucleated Red Blood Cells 1.2 /100 WBC (0); Red Blood Count 2.63 M/mcL (3.82-4.97); Red Cell Distribution Width 20.2 % (11.5-14.5); Segmented Neutrophils % 81.1 %; White Blood Count 9.9 K/mcL (4.3-11.1)
[2021-11-01 09:16] LABS: Platelet Count 58 K/mcL (140-400)
[2021-11-01 09:17] LABS: Platelet Estimate Decreased (Normal)
[2021-11-01 09:20] LABS: % Iron Saturation 24 % (15-50); Iron 56 mcg/dL (50-170); Lactate Dehydrogenase 380 Units/L (140-271); Transferrin 168 mg/dL (203-362)
[2021-11-01 09:57] LABS: Ferritin > 1500 ng/mL (10-120)
[2021-11-01] MEDS: BuPROPion SR (12 HR) 150 MG TABLET PO SCH ×2 (12:05→22:22)
[2021-11-01] MEDS: Sennosides/Docusate Sodium TABLET PO SCH (22:22)
[2021-11-01] MEDS: *HR* LORazepam 1 MG TABLET PO PRN (22:22)
[2021-11-01] MEDS: Benzonatate 100 MG CAPSULE PO PRN (22:24)
[2021-11-01] MEDS: Nystatin POWDER 30 GM BOTTLE TP SCH (22:25)
[2021-11-02] MEDS: Piperacillin/Tazobactam 3.375 GM in 0.9 % Sodium Chloride Mini Bag 100 ML IVPB SCH ×3 (01:37→16:40)
[2021-11-02] MEDS: Ipratropium/Albuterol Neb 3 ML IH SCH ×4 (04:45→22:01)
[2021-11-02] MEDS: *HR* OxyCODONE Immed Rel 5 MG TABLET PO PRN ×4 (06:35→19:33)
[2021-11-02 06:52] LABS: Basophils % 0.4 %; Eosinophils # 0.2 K/mcL (0.0-0.6); Eosinophils % 1.9 %; Hemoglobin 7.4 g/dL (11.5-15.4); Immature Granulocytes % 3.2 % (0-4); Immature Platelets 5.2 % (1.1-6.1); Lymphocytes # 0.4 K/mcL (0.6-4.6); Lymphocytes % 4.7 %; Mean Corpuscular HGB Conc 32.2 g/dL (31.6-35.5); Mean Corpuscular Volume 90.2 fL (83.0-100.0); Mean Platelet Volume 10.1 fL (9.4-12.4); Monocytes # 0.6 K/mcL (0.0-1.3); Monocytes % 6.9 %; Neutrophils # 7.7 K/mcL (1.6-8.9); Nucleated Red Blood Cells 0.5 /100 WBC (0); Red Blood Count 2.55 M/mcL (3.82-4.97); Red Cell Distribution Width 20.4 % (11.5-14.5); Segmented Neutrophils % 82.9 %; White Blood Count 9.3 K/mcL (4.3-11.1)
[2021-11-02 06:53] LABS: Platelet Count 61 K/mcL (140-400)
[2021-11-02 07:10] LABS: Potassium 3.7 mEq/L (3.5-5.1)
[2021-11-02] MEDS: Sennosides/Docusate Sodium TABLET PO SCH (08:35)
[2021-11-02] MEDS: Nystatin POWDER 30 GM BOTTLE TP SCH ×2 (08:36→19:34)
[2021-11-02] MEDS: Benzonatate 100 MG CAPSULE PO PRN ×2 (08:55→19:33)
[2021-11-02] MEDS: BuPROPion SR (12 HR) 150 MG TABLET PO SCH ×2 (10:15→19:33)
[2021-11-02] MEDS ORDERED: Melatonin 3 MG TABLET PO PRN (20:00)
[2021-11-02] MEDS ORDERED: Furosemide 20 MG/2 ML VIAL IVP ONE (20:00)
[2021-11-02] MEDS: Dexmedetomidine HCl 400 MCG/100 ML MLS IVC SCH (20:06)
[2021-11-02 21:35] LABS: Basophils % 0.3 %; Hematocrit 23.2 % (35.3-44.9); Hemoglobin 7.5 g/dL (11.5-15.4); Lymphocytes % 4.3 %; Mean Corpuscular HGB Conc 32.3 g/dL (31.6-35.5); Mean Corpuscular Hemoglobin 29.1 pg (28.0-33.3); Mean Corpuscular Volume 89.9 fL (83.0-100.0); Red Blood Count 2.58 M/mcL (3.82-4.97)
[2021-11-02 21:37] LABS: VBG Ionized Calcium 1.13 mmol/L (1.15-1.35)
[2021-11-02 21:37] LABS: Eosinophils # 0.2 K/mcL (0.0-0.6); Eosinophils % 2.2 %; Immature Granulocytes % 3.3 % (0-4); Immature Platelets 4.4 % (1.1-6.1); Lymphocytes # 0.4 K/mcL (0.6-4.6); Mean Platelet Volume 9.3 fL (9.4-12.4); Monocytes # 0.7 K/mcL (0.0-1.3); Monocytes % 7.3 %; Neutrophils # 7.9 K/mcL (1.6-8.9); Nucleated Red Blood Cells 0.3 /100 WBC (0); Red Cell Distribution Width 20.3 % (11.5-14.5); Segmented Neutrophils % 82.6 %; White Blood Count 9.6 K/mcL (4.3-11.1)
[2021-11-02 21:39] LABS: Platelet Count 68 K/mcL (140-400)
[2021-11-02 21:43] LABS: INR 1.3; Prothrombin Time 14.9 Seconds (9.4-12.1)
[2021-11-02 21:46] LABS: Activated Partial Thrombo Time 26.8 Seconds (26.0-36.0)
[2021-11-02 21:55] LABS: Calcium 9.3 mg/dL (8.6-10.3); Magnesium 1.7 mg/dL (1.6-2.6); Phosphorous 3.7 mg/dL (2.7-4.5); Potassium 3.8 mEq/L (3.5-5.1)
[2021-11-03] MEDS: Piperacillin/Tazobactam 3.375 GM in 0.9 % Sodium Chloride Mini Bag 100 ML IVPB SCH ×4 (00:15→23:41)
[2021-11-03] MEDS: Ipratropium/Albuterol Neb 3 ML IH SCH ×4 (04:03→21:16)
[2021-11-03 05:05] LABS: Basophils % 0.3 %; Eosinophils # 0.2 K/mcL (0.0-0.6); Eosinophils % 2.2 %; Hematocrit 20.3 % (35.3-44.9); Hemoglobin 6.3 g/dL (11.5-15.4); Immature Granulocytes % 3.1 % (0-4); Immature Platelets 5.5 % (1.1-6.1); Lymphocytes # 0.3 K/mcL (0.6-4.6); Lymphocytes % 4.4 %; Mean Corpuscular Hemoglobin 28.1 pg (28.0-33.3); Mean Corpuscular Volume 90.6 fL (83.0-100.0); Mean Platelet Volume 10.6 fL (9.4-12.4); Monocytes # 0.6 K/mcL (0.0-1.3); Monocytes % 8.1 %; Neutrophils # 6.1 K/mcL (1.6-8.9); Nucleated Red Blood Cells 0.3 /100 WBC (0); Platelet Count 66 K/mcL (140-400); Red Blood Count 2.24 M/mcL (3.82-4.97); Red Cell Distribution Width 20.1 % (11.5-14.5); Segmented Neutrophils % 81.9 %; White Blood Count 7.4 K/mcL (4.3-11.1)
[2021-11-03 05:24] LABS: Calcium 8.8 mg/dL (8.6-10.3); Magnesium 1.6 mg/dL (1.6-2.6); Phosphorous 3.9 mg/dL (2.7-4.5); Potassium 3.6 mEq/L (3.5-5.1)
[2021-11-03] MEDS: *HR* OxyCODONE Immed Rel 5 MG TABLET PO PRN ×3 (06:54→16:41)
[2021-11-03] MEDS ORDERED: 0.9 % Sodium Chloride 250 ML ONE ×2 (07:50→18:09)
[2021-11-03] MEDS: Dexmedetomidine HCl 400 MCG/100 ML MLS IVC SCH ×2 (08:28→21:27)
[2021-11-03] MEDS: Nystatin POWDER 30 GM BOTTLE TP SCH ×2 (09:19→20:15)
[2021-11-03] MEDS: Sennosides/Docusate Sodium TABLET PO SCH (09:19)
[2021-11-03 09:23] LABS: VBG Ionized Calcium 1.15 mmol/L (1.15-1.35)
[2021-11-03] MEDS ORDERED: Oxymetazoline Nasal Spray Bottle 30ML NS ONE (10:35)
[2021-11-03] MEDS: Metoclopramide 10 MG/2 ML VIAL IVP SCH ×3 (11:12→23:39)
[2021-11-03] MEDS: BuPROPion SR (12 HR) 150 MG TABLET PO SCH ×2 (11:12→23:03)
[2021-11-03] MEDS: Furosemide 20 MG/2 ML VIAL IVP SCH ×2 (12:08→16:43)
[2021-11-03 13:51] LABS: Hematocrit 24.7 % (35.3-44.9)
[2021-11-03 13:51] LABS: Immature Reticulocyte % 26.5 % (11.0-38.0); Retculocyte # 0.16 M/mcL (0.05-0.10)
[2021-11-03] MEDS ORDERED: *HR* OxyCODONE Immed Rel 5 MG TABLET PO PRN (17:55)
[2021-11-03] MEDS: Benzonatate 100 MG CAPSULE PO PRN (20:07)
[2021-11-03] MEDS: *HR* HYDROcodone/Acet 5/325 mg TABLET PO PRN (20:11)
[2021-11-03 20:52] LABS: Hematocrit 23.3 % (35.3-44.9); Hemoglobin 7.6 g/dL (11.5-15.4)
[2021-11-04] MEDS ORDERED: Morphine Sulfate 2 MG/ML SYRINGE IVP ONE (00:25)
[2021-11-04] MEDS ORDERED: Morphine Sulfate 2 MG/ML SYRINGE ONE (00:28)
[2021-11-04] MEDS: *HR* HYDROcodone/Acet 5/325 mg TABLET PO PRN (02:25)
[2021-11-04] MEDS: *HR* LORazepam 1 MG TABLET PO PRN (02:53)
[2021-11-04] MEDS ORDERED: *HR* OxyCODONE Immed Rel 5 MG TABLET PO PRN (02:54)
[2021-11-04] MEDS ORDERED: *HR* LORazepam 1 MG TABLET PO PRN (02:54)
[2021-11-04 03:32] LABS: Calcium 8.9 mg/dL (8.6-10.3); Magnesium 1.5 mg/dL (1.6-2.6); Phosphorous 4.5 mg/dL (2.7-4.5); Potassium 3.3 mEq/L (3.5-5.1)
[2021-11-04 03:33] LABS: Hemoglobin 7.4 g/dL (11.5-15.4); Red Cell Distribution Width 18.6 % (11.5-14.5)
[2021-11-04 03:35] LABS: Basophils % 0.2 %; Eosinophils # 0.2 K/mcL (0.0-0.6); Eosinophils % 2.2 %; Hematocrit 22.9 % (35.3-44.9); Immature Granulocytes % 2.1 % (0-4); Immature Platelets 4.4 % (1.1-6.1); Lymphocytes # 0.6 K/mcL (0.6-4.6); Lymphocytes % 6.6 %; Mean Corpuscular HGB Conc 32.3 g/dL (31.6-35.5); Mean Corpuscular Hemoglobin 28.7 pg (28.0-33.3); Mean Corpuscular Volume 88.8 fL (83.0-100.0); Mean Platelet Volume 10.3 fL (9.4-12.4); Monocytes # 0.7 K/mcL (0.0-1.3); Monocytes % 8.5 %; Platelet Count 101 K/mcL (140-400); Red Blood Count 2.58 M/mcL (3.82-4.97); Segmented Neutrophils % 80.4 %; White Blood Count 8.7 K/mcL (4.3-11.1)
[2021-11-04] MEDS: *HR* OxyCODONE Immed Rel 5 MG TABLET PO PRN ×2 (03:51→12:00)
[2021-11-04] MEDS: Benzonatate 100 MG CAPSULE PO PRN ×2 (03:51→13:37)
[2021-11-04] MEDS: Acetylcysteine 10% 2 ML INHSOL IH SCH ×5 (03:55→21:02)
[2021-11-04] MEDS: Ipratropium/Albuterol Neb 3 ML IH SCH ×6 (03:55→21:02)
[2021-11-04 04:33] LABS: VBG Ionized Calcium 0.97 mmol/L (1.15-1.35)
[2021-11-04] MEDS: Potassium Chloride 40 MEQ/200 ML BAG IVPB PRN (05:08)
[2021-11-04] MEDS: Metoclopramide 10 MG/2 ML VIAL IVP SCH ×3 (05:08→16:41)
[2021-11-04] MEDS: Calcium Gluconate 1gm/50mL 1 GM/50 ML BAG IVPB PRN (05:09)
[2021-11-04] MEDS: Piperacillin/Tazobactam 3.375 GM in 0.9 % Sodium Chloride Mini Bag 100 ML IVPB SCH ×2 (08:37→16:42)
[2021-11-04] MEDS: Furosemide 20 MG/2 ML VIAL IVP SCH ×2 (08:37→16:42)
[2021-11-04] MEDS: Sennosides/Docusate Sodium TABLET PO SCH (08:37)
[2021-11-04] MEDS: Dexmedetomidine HCl 400 MCG/100 ML MLS IVC SCH ×2 (10:21→21:48)
[2021-11-04 11:06] LABS: Albumin 3.1 g/dL (3.5-5.7); Bilirubin,Direct 1.7 mg/dL (0.0-0.2); Bilirubin,Indirect 1.8 mg/dL (0.0-1.0); Bilirubin,Total 3.5 mg/dL (0.3-1.0); Globulin 3.1 g/dL (2.4-3.5); Total Protein 6.2 g/dL (6.4-8.9)
[2021-11-04] MEDS: BuPROPion SR (12 HR) 150 MG TABLET PO SCH ×2 (11:47→22:01)
[2021-11-04 12:28] LABS: Hemoglobin 7.3 g/dL (11.5-15.4)
[2021-11-04] MEDS ORDERED: *HR* FentaNYL PATCH 12 MCG PATCH TD SCH (15:00)
[2021-11-04] MEDS: Nystatin POWDER 30 GM BOTTLE TP SCH ×2 (16:42→21:31)
[2021-11-04 19:11] LABS: Hematocrit RBC Folate 23.8 %
[2021-11-04] MEDS: *HR* LORazepam 2 MG/ML VIAL IVP PRN (19:53)
[2021-11-04] MEDS: Morphine Sulfate 2 MG/ML SYRINGE IVP PRN (21:40)
[2021-11-05] MEDS: Ipratropium/Albuterol Neb 3 ML IH SCH ×7 (00:31→23:26)
[2021-11-05] MEDS: Acetylcysteine 10% 2 ML INHSOL IH SCH ×3 (00:38→08:05)
[2021-11-05] MEDS: Piperacillin/Tazobactam 3.375 GM in 0.9 % Sodium Chloride Mini Bag 100 ML IVPB SCH ×4 (00:53→23:37)
[2021-11-05] MEDS: Benzonatate 100 MG CAPSULE PO PRN ×2 (00:54→14:01)
[2021-11-05] MEDS: Metoclopramide 10 MG/2 ML VIAL IVP SCH ×5 (00:54→23:37)
[2021-11-05] MEDS: *HR* OxyCODONE Immed Rel 5 MG TABLET PO PRN ×5 (00:55→22:17)
[2021-11-05] MEDS ORDERED: Furosemide 20 MG/2 ML VIAL IVP ONE ×2 (01:23→23:53)
[2021-11-05] MEDS: Morphine Sulfate 2 MG/ML SYRINGE IVP PRN ×3 (02:48→20:06)
[2021-11-05 04:16] LABS: Basophils % 0.4 %; Eosinophils # 0.2 K/mcL (0.0-0.6); Eosinophils % 2.3 %; Hematocrit 22.7 % (35.3-44.9); Hemoglobin 7.3 g/dL (11.5-15.4); Immature Granulocytes % 2.1 % (0-4); Lymphocytes # 0.5 K/mcL (0.6-4.6); Lymphocytes % 6.6 %; Mean Corpuscular HGB Conc 32.2 g/dL (31.6-35.5); Mean Corpuscular Hemoglobin 28.9 pg (28.0-33.3); Mean Corpuscular Volume 89.7 fL (83.0-100.0); Mean Platelet Volume 9.5 fL (9.4-12.4); Monocytes # 0.7 K/mcL (0.0-1.3); Monocytes % 8.7 %; Red Blood Count 2.53 M/mcL (3.82-4.97); Red Cell Distribution Width 18.6 % (11.5-14.5); Segmented Neutrophils % 79.9 %; White Blood Count 8.2 K/mcL (4.3-11.1)
[2021-11-05 04:19] LABS: Neutrophils # 6.6 K/mcL (1.6-8.9); Platelet Count 94 K/mcL (140-400)
[2021-11-05 04:26] LABS: VBG Ionized Calcium 1.09 mmol/L (1.15-1.35)
[2021-11-05 04:36] LABS: Calcium 9.4 mg/dL (8.6-10.3); Magnesium 1.4 mg/dL (1.6-2.6); Phosphorous 4.8 mg/dL (2.7-4.5); Potassium 3.1 mEq/L (3.5-5.1)
[2021-11-05] MEDS: Potassium Chloride 40 MEQ/200 ML BAG IVPB PRN (05:28)
[2021-11-05] MEDS: Calcium Gluconate 1gm/50mL 1 GM/50 ML BAG IVPB PRN (05:28)
[2021-11-05] MEDS ORDERED: Ipratropium/Albuterol Neb 3 ML IH PRN (05:39)
[2021-11-05] MEDS: *HR* LORazepam 2 MG/ML VIAL IVP PRN (05:56)
[2021-11-05] MEDS: Dexmedetomidine HCl 400 MCG/100 ML MLS IVC SCH ×2 (08:13→17:42)
[2021-11-05] MEDS: Furosemide 20 MG/2 ML VIAL IVP SCH ×2 (08:17→16:36)
[2021-11-05] MEDS: Sennosides/Docusate Sodium TABLET PO SCH (08:17)
[2021-11-05] MEDS ORDERED: Albumin 25% 25gram/100mL 25 GM/100 ML IV.SOLN IVPB ONE (09:26)
[2021-11-05] MEDS: BuPROPion SR (12 HR) 150 MG TABLET PO SCH ×2 (11:21→22:16)
[2021-11-05] MEDS: Nystatin POWDER 30 GM BOTTLE TP SCH ×2 (14:05→21:25)
[2021-11-05] MEDS ORDERED: Glycopyrrolate 0.2 MG/ML VIAL IVP ONE (15:34)
[2021-11-05] MEDS: Sodium Chloride for inhalation 3 ML VIAL IH SCH ×3 (20:18)
[2021-11-06] MEDS: Morphine Sulfate 2 MG/ML SYRINGE IVP PRN ×4 (00:10→19:54)
[2021-11-06] MEDS: Dexmedetomidine HCl 400 MCG/100 ML MLS IVC SCH ×2 (02:55→11:14)
[2021-11-06] MEDS: Ipratropium/Albuterol Neb 3 ML IH SCH ×6 (03:38→23:03)
[2021-11-06] MEDS: Benzonatate 100 MG CAPSULE PO PRN ×2 (03:41→21:09)
[2021-11-06] MEDS: *HR* OxyCODONE Immed Rel 5 MG TABLET PO PRN ×3 (03:41→15:50)
[2021-11-06] MEDS: *HR* LORazepam 2 MG/ML VIAL IVP PRN ×4 (03:42→20:07)
[2021-11-06 03:58] LABS: Basophils % 0.2 %; Eosinophils # 0.2 K/mcL (0.0-0.6); Eosinophils % 2.4 %; Hematocrit 21.5 % (35.3-44.9); Lymphocytes # 0.5 K/mcL (0.6-4.6); Lymphocytes % 6.2 %; Mean Corpuscular HGB Conc 32.6 g/dL (31.6-35.5); Mean Corpuscular Hemoglobin 28.3 pg (28.0-33.3); Mean Platelet Volume 10.5 fL (9.4-12.4); Monocytes # 0.7 K/mcL (0.0-1.3); Monocytes % 8.4 %; Neutrophils # 6.6 K/mcL (1.6-8.9); Platelet Count 102 K/mcL (140-400); Red Blood Count 2.47 M/mcL (3.82-4.97); Red Cell Distribution Width 18.4 % (11.5-14.5); Segmented Neutrophils % 80.8 %; White Blood Count 8.2 K/mcL (4.3-11.1)
[2021-11-06 04:17] LABS: Calcium 9.4 mg/dL (8.6-10.3); Magnesium 1.4 mg/dL (1.6-2.6)
[2021-11-06] MEDS: Metoclopramide 10 MG/2 ML VIAL IVP SCH ×3 (05:24→16:59)
[2021-11-06] MEDS: Potassium Chloride 40 MEQ/200 ML BAG IVPB PRN (05:29)
[2021-11-06] MEDS: Sodium Chloride for inhalation 3 ML VIAL IH SCH ×2 (07:43→23:03)
[2021-11-06] MEDS: Furosemide 20 MG/2 ML VIAL IVP SCH ×2 (08:21→16:58)
[2021-11-06] MEDS: Piperacillin/Tazobactam 3.375 GM in 0.9 % Sodium Chloride Mini Bag 100 ML IVPB SCH ×2 (08:21→16:53)
[2021-11-06] MEDS: Sennosides/Docusate Sodium TABLET PO SCH (08:21)
[2021-11-06] MEDS ORDERED: Albumin 25% 25gram/100mL 25 GM/100 ML IV.SOLN IVPB ONE (08:27)
[2021-11-06] MEDS ORDERED: 0.9 % Sodium Chloride 250 ML ONE (10:33)
[2021-11-06] MEDS: BuPROPion SR (12 HR) 150 MG TABLET PO SCH ×2 (11:03→22:41)
[2021-11-06] MEDS: Nystatin POWDER 30 GM BOTTLE TP SCH ×2 (11:04→21:10)
[2021-11-06] MEDS ORDERED: *HR* LORazepam 2 MG/ML VIAL IVP PRN (15:05)
[2021-11-06] MEDS ORDERED: Morphine Sulfate 2 MG/ML SYRINGE IVP PRN (15:05)
[2021-11-06] MEDS ORDERED: Calcium Gluconate 1gm/50mL 1 GM/50 ML BAG IVPB PRN (16:30)
[2021-11-06] MEDS ORDERED: *HR* LORazepam 1 MG TABLET PO PRN (16:30)
[2021-11-06] MEDS ORDERED: *HR* OxyCODONE Immed Rel 5 MG TABLET PO PRN (16:30)
[2021-11-06] MEDS ORDERED: Potassium Chloride 40 MEQ/200 ML BAG IVPB PRN (16:30)
[2021-11-06] MEDS ORDERED: Melatonin 3 MG TABLET PO PRN (16:30)
[2021-11-06] MEDS ORDERED: Ipratropium/Albuterol Neb 3 ML IH PRN (16:30)
[2021-11-06] MEDS ORDERED: Dexmedetomidine HCl 400 MCG/100 ML MLS IVC SCH (16:30)
[2021-11-06] MEDS ORDERED: Ondansetron ODT 4 MG TAB.RAPDIS SL PRN (16:30)
[2021-11-06] MEDS ORDERED: Atropine Sulfate 1% 40 DROP/2 ML BOTTLE SL PRN (18:07)
[2021-11-06] MEDS ORDERED: Scopolamine Patch 1.5 MG PATCH.TD72 TD SCH (18:15)
[2021-11-06 19:54] VITALS: BP 151/81; PULSE 122; TEMP 99.7
[2021-11-06] MEDS: Glycopyrrolate 0.2 MG/ML VIAL IVP PRN (21:00)
[2021-11-07] MEDS: Morphine Sulfate 2 MG/ML SYRINGE IVP PRN ×12 (00:46→23:07)
[2021-11-07] MEDS: Metoclopramide 10 MG/2 ML VIAL IVP SCH ×5 (01:07→23:06)
[2021-11-07] MEDS: Piperacillin/Tazobactam 3.375 GM in 0.9 % Sodium Chloride Mini Bag 100 ML IVPB SCH ×3 (01:08→18:34)
[2021-11-07] MEDS: Ipratropium/Albuterol Neb 3 ML IH SCH ×3 (04:10→11:11)
[2021-11-07] MEDS: Glycopyrrolate 0.2 MG/ML VIAL IVP PRN ×2 (06:00→19:36)
[2021-11-07] MEDS: Sodium Chloride for inhalation 3 ML VIAL IH SCH ×2 (07:47→22:44)
[2021-11-07] MEDS ORDERED: Sennosides/Docusate Sodium TABLET PO SCH (09:00)
[2021-11-07] MEDS: *HR* OxyCODONE Immed Rel 5 MG TABLET PO PRN ×2 (09:18→12:22)
[2021-11-07] MEDS: Benzonatate 100 MG CAPSULE PO PRN (09:18)
[2021-11-07] MEDS: BuPROPion SR (12 HR) 150 MG TABLET PO SCH ×2 (09:18→20:27)
[2021-11-07] MEDS: Furosemide 20 MG/2 ML VIAL IVP SCH ×2 (09:19→17:43)
[2021-11-07] MEDS: Nystatin POWDER 30 GM BOTTLE TP SCH ×2 (09:31→20:27)
[2021-11-07] MEDS ORDERED: *HR* FentaNYL PATCH 12 MCG PATCH TD SCH (15:00)
[2021-11-07 22:46] VITALS: O2SAT 93
[2021-11-08] MEDS: Morphine Sulfate 2 MG/ML SYRINGE IVP PRN ×6 (00:07→07:23)
[2021-11-08] MEDS: *HR* LORazepam 2 MG/ML VIAL IVP PRN ×2 (04:31→07:22)
[2021-11-08] MEDS: Metoclopramide 10 MG/2 ML VIAL IVP SCH (04:31)
[2021-11-08] MEDS: Furosemide 20 MG/2 ML VIAL IVP SCH (09:40)
[2021-11-08] MEDS: Nystatin POWDER 30 GM BOTTLE TP SCH (09:40)
[2021-11-08] MEDS: BuPROPion SR (12 HR) 150 MG TABLET PO SCH (09:40)
[2021-11-08] MEDS: Sodium Chloride for inhalation 3 ML VIAL IH SCH (09:40)
== END 2021-11-08 08:20 | disposition expired | DRG 871 ==
LOC: SAMDAY 09:22 → SUATTDRO 14:51 → ICNU 14:51 → 2NENU 11-01 06:04 → ICNU 11-02 19:02 → 2ANU 11-06 16:13
PROVIDERS: ADMIT Family Medicine; ATTEND Family Medicine